=== PATIENT | female | born 1980 | race Caucasian/White ===

== ENCOUNTER 2018-02-01 16:05 | Emergency (ER) | payer OTHER ==
[~2018-02-01] VITALS: Ht 157.5 cm; Wt 61.9 kg
[2018-02-01 16:50] VITALS: BP 130/87
[2018-02-01] MEDS: IBUPROFEN 600 MG TAB PO ONE (19:02)
[2018-02-01] MEDS: AZITHROMYCIN 250 MG TAB PO ONE (19:02)
[2018-02-01] MEDS: metroNIDAZOLE 250 MG TAB PO ONE (19:04)
[2018-02-01] MEDS: cefTRIAXone 250 MG in LIDOCAINE MPF 1% - 5 mL VIAL 0.9 ML IM ONE (19:05)
[2018-02-01 19:45] VITALS: BP 122/83
[2018-02-03 06:16] LABS: CHLAMYDIA TRACHOMATIS AMP DNA Negative (Negative)
== END 2018-02-01 19:45 | disposition home or self-care (01) ==
LOC: MED 16:05
DX: A64 Unspecified sexually transmitted disease (principal)
CPT/HCPCS: 36415; 81002; 81025; 87491; 96372; 99283; J0696; J2001

== ENCOUNTER 2019-02-26 12:33 | Emergency (ER) | payer OTHER ==
[~2019-02-26] VITALS: Ht 157.5 cm; Wt 63.5 kg
[2019-02-26 12:39] VITALS: BP 115/63
--- NOTE | 2019-02-26 13:17 | NUR ---
C/O BILATERAL FLANK PAIN, DYSURIA, SUPRAPUBIC PAIN X YESTERDAY. PATIENT STATES PAIN OF 6/10 AT THIS TIME.
[2019-02-26 13:30] VITALS: BP 115/63
--- NOTE | 2019-02-26 13:31 | NUR ---
Patient discharged with v/s stable. Written and verbal after care instructions given and explained. Patient alert, oriented and verbalized understanding of instructions. Ambulatory with steady gait. All questions addressed prior to discharge. ID band removed. Patient advised to follow up with PMD. Rx of LEVAQUIN given. Patient educated on indication of medication including possible reaction and side effects. Opportunity to ask questions provided and answered.
== END 2019-02-26 13:31 | disposition home or self-care (01) ==
LOC: MED 12:33
DX: N39.0 Urinary tract infection, site not specified (principal)
CPT/HCPCS: 81002; 99283

== ENCOUNTER 2019-04-26 15:29 | Emergency (ER) | payer OTHER ==
[~2019-04-26] VITALS: Ht 157.5 cm; Wt 59.0 kg
[2019-04-26 16:06] VITALS: BP 107/67
--- NOTE | 2019-04-26 16:11 | NUR ---
LOBBY Addendum: 04/26/19 at 1612 by [email or web address] HANDED ON URINE CUP.
--- NOTE | 2019-04-26 16:40 | NUR ---
PT AMBULATED TO BED 06 WITH STEADY GAIT
--- NOTE | 2019-04-26 16:53 | NUR ---
39 YO F CO UTI SYMPTOMS. PT STATES PAIN AND BURNING WITH URINATION X2D. PT HAS NO MED HX AND IS NOT CURRENTLY ON MEDS. UA WAS DONE AND TAKEN TO LAB. PT LAYING IN BED WITH ONE SIDE RAIL UP FOR SAFETY.
[2019-04-26] MEDS ORDERED: cefTRIAXone 1,000 MG in LIDOCAINE MPF 1% 2.1 ML IM ONE (16:55)
[2019-04-26] MEDS ORDERED: LIDOCAINE MPF 1% 0 ML ONE (16:56)
[2019-04-26] MEDS ORDERED: cefTRIAXone 1,000 MG VIAL ONE (16:56)
--- NOTE | 2019-04-26 17:06 | NUR ---
PT REFUSES IM ROCEPHIN. JOVANNY VENEGAS MADE AWARE. MEDICATION RETURNED TO [facility]
[2019-04-26 17:07] LABS: APPEARANCE,URINE CLEAR (CLEAR); BILIRUBIN,URINE NEGATIVE (NEGATIVE); BLOOD, URINE 1+ (NEGATIVE); COLOR,URINE YELLOW (YELLOW); LEUKOCYTE ESTERASE ,URINE 3+ (NEGATIVE); NITRITE, URINE POSITIVE (NEGATIVE); UGLUCOSE NEGATIVE (NEGATIVE)
[2019-04-26 17:15] LABS: WBC,URINE 16-25 (MOD) /HPF (0-5)
--- NOTE | 2019-04-26 17:40 | NUR ---
Patient discharged with v/s stable. Written and verbal after care instructions given and explained. Patient alert, oriented and verbalized understanding of instructions. Ambulatory with steady gait. All questions addressed prior to discharge. ID band removed. Patient advised to follow up with PMD. Rx of MACROBID AND PYRIDIUM given. Patient educated on indication of medication including possible reaction and side effects. Opportunity to ask questions provided and answered.
[2019-04-28 06:08] LABS: CHLAMYDIA TRACHOMATIS AMP DNA Negative (Negative)
== END 2019-04-26 17:40 | disposition home or self-care (01) ==
LOC: MED 15:29
DX: N39.0 Urinary tract infection, site not specified (principal)
CPT/HCPCS: 36415; 81001; 81025; 87086; 87186; 87491; 99283; J0696; J2001

== ENCOUNTER 2020-02-24 15:44 | Emergency (ER) | payer OTHER ==
[~2020-02-24] VITALS: Ht 157.5 cm; Wt 58.5 kg
[2020-02-24 16:20] VITALS: BP 117/74
--- NOTE | 2020-02-24 16:50 | NUR ---
NO NURSING INTERVENTIONS PROVIDED.
[2020-02-24 16:53] VITALS: BP 117/74
--- NOTE | 2020-02-24 16:53 | NUR ---
Patient discharged with v/s stable. Written and verbal after care instructions given and explained. Patient alert, oriented and verbalized understanding of instructions. Ambulatory with steady gait. All questions addressed prior to discharge. ID band removed. Patient advised to follow up with PMD. Rx of PROMETHAZINE, IBUPROFEN, ALBUTEROL given. Patient educated on indication of medication including possible reaction and side effects. Opportunity to ask questions provided and answered.
== END 2020-02-24 16:53 | disposition home or self-care (01) ==
LOC: MED 15:44
DX: U07.1 COVID-19 (principal); R50.9 Fever, unspecified; R05 Cough; R06.02 Shortness of breath
CPT/HCPCS: 71045; 99283

== ENCOUNTER 2020-06-19 03:24 | Emergency (ER) | payer OTHER ==
[~2020-06-19] VITALS: Ht 157.5 cm; Wt 62.1 kg
[2020-06-19 03:26] VITALS: BP 115/66
--- NOTE | 2020-06-19 03:30 | NUR ---
PT AMBULATED TO BED 8
--- NOTE | 2020-06-19 03:40 | NUR ---
40 Y/O FEMALE PRESENTS TO THE ED WITH C/O RAPID HEART RATE. PT REPORTS WAKING UP AT 0300 WITH POUNDING PULSE IN THE NECK AND HEAD EVEN THOUGH SHE FELT CALM. PT LOOKED AT APPLE WATCH AND SAW HEART RATE TRENDING FROM 120s to 130s AND "MADE ME PANIC." PT DENIES PAIN. DENIES N/V/D/LIGHTHEADEDNESS; SKIN IS PINK/WARM/DRY; AAOX4 WITH EVEN AND STEADY GAIT; HR EVEN AND REGULAR; PT DENIES ANY FEVER, CP, SOB, OR COUGH AT THIS TIME. PT REPORTS HAVING 2 CUPS OF WINE BEFORE BED. PMH: N/A ALLERGIES: NKA
[2020-06-19 04:10] VITALS: BP 102/65
--- NOTE | 2020-06-19 04:10 | NUR ---
Patient discharged with v/s stable. Written and verbal after care instructions given and explained. Patient verbalized understanding. Ambulatory with steady gait. All questions addressed prior to discharge. Advised to follow up with PMD.
== END 2020-06-19 04:10 | disposition home or self-care (01) ==
LOC: MED 03:24
DX: R00.2 Palpitations (principal); R00.0 Tachycardia, unspecified; Z98.890 Other specified postprocedural states
CPT/HCPCS: 93005; 99283